=== PATIENT | female | born 1985 | race African-American/Black ===

== ENCOUNTER 2019-11-25 04:38 | Emergency (ER) | payer MEDICAID ==
[~2019-11-25] VITALS: Ht 162.6 cm; Wt 87.5 kg
[2019-11-25 05:00] VITALS: BP 107/72
[2019-11-25] MEDS ORDERED: PSEUDOEPHEDRINE60 MG PO (05:25)
[2019-11-25] MEDS ORDERED: IBUPROFEN600 MG ORAL (05:25)
--- NOTE | 2019-11-25 05:25 | Emergency Room Report ---
History of Present Illness General Chief Complaint: Upper Respiratory Illness Source: Patient Present Illness HPI 34-year-old female with no past medical history. She presents with complaint of headache cough, diarrhea, feet swelling. She had a cough and congestion last week. The cough is better after taking promethazine. She is also placed on Keflex. She was doing well and took the bus from [place] to here. Here she said that she had a headache and still has some congestion. Cough is better but still there. Reason she came in today because she had profuse diarrhea. Very watery. No cramping or fever or chills. Noticed that her feet are slightly swollen. Denies any abdominal pain. Denies any shortness of breath. Denies any calf swelling. Allergies: Coded Allergies: SULFAMETHOXAZOLE (Verified Allergy, Unknown, 11/25/19) TRAMADOL (Verified Allergy, Unknown, 11/25/19) TRIMETHOPRIM (Verified Allergy, Unknown, 11/25/19) Patient History Past Medical History: see triage record, old chart reviewed Past Surgical History: none Pertinent Family History: none Social History: Denies: smoking Last Menstrual Period: Now: No Immunizations: other Reviewed Nursing Documentation: PMH: Agreed; PSxH: Agreed Nursing Documentation-PMH Past Medical History: No History, Except For Review of Systems Eye: Denies: eye pain, blurred vision ENT: Denies: ear pain, nose congestion, throat swelling Respiratory: Reports: cough; Denies: shortness of breath Cardiovascular: Denies: chest pain, palpitations Gastrointestinal: Reports: diarrhea; Denies: abdominal pain, nausea, vomiting Musculoskeletal: Denies: back pain, joint pain Skin: Denies: rash Neurological: Denies: headache, numbness Endocrine: Denies: increased thirst, increased urine Hematologic/Lymphatic: Denies: easy bruising All Other Systems: negative except mentioned in HPI Physical Exam Vital Signs Date Time Temp Pulse Resp B/P (MAP) Pulse Ox O2 Delivery O2 Flow Rate FiO2 11/25/19 04:55 98.2 100 14 107/72 (84) 98 Room Air Vitals normal Sp02 EP Interpretation: reviewed, normal General Appearance: well appearing, no apparent distress, alert Head: normocephalic, atraumatic Eyes: bilateral eye PERRL, bilateral eye EOMI ENT: hearing grossly normal, normal pharynx Neck: full range of motion, supple, no meningismus Respiratory: chest non-tender, lungs clear, normal breath sounds Cardiovascular #1: regular rate, rhythm, no murmur Gastrointestinal: normal bowel sounds, non tender, no mass, no organomegaly, no bruit, non-distended Musculoskeletal: back normal, normal range of motion, gait/station normal, swelling - Mild nonpitting edema to the feet and ankle Neurologic: alert Psychiatric: mood/affect normal Medical Decision Making Diagnostic Impression: Primary Impression: Upper respiratory symptom ER Course Patient with a viral illness. No need for antibiotics. No evidence of meningitis, sepsis, pneumonia to my view. Her edema is probably secondary to dependent edema being on the bus from [place] to here. Is bilateral. Lungs are clear. No calf tenderness. No evidence of CHF. No evidence of DVT. Last Vital Signs Date Time Temp Pulse Resp B/P (MAP) Pulse Ox O2 Delivery O2 Flow Rate FiO2 11/25/19 04:55 98.2 100 14 107/72 (84) 98 Room Air Status: improved Disposition: HOME, SELF-CARE Condition: Stable Scripts Pseudoephedrine Hcl* (SUDAFED*) 60 Mg Tablet 60 MG PO Q6H, #20 TAB Prov: Manny Augustin MD 11/25/19 Ibuprofen* (MOTRIN*) 600 Mg Tablet 600 MG ORAL THREE TIMES A DAY, #30 TAB 0 Refills Prov: Manny Augustin MD 11/25/19 Referrals: NOT CHOSEN IPA/,REFERRING (PCP) Patient Instructions: Upper Respiratory Infection, Adult Additional Instructions: Increase fluids. Do not stop the diarrhea. Follow-up with in 7 days but return if worse. Manny Augustin MD Nov 25, 2019 05:25
[2019-11-25 05:30] VITALS: BP 107/72
== END 2019-11-25 05:30 | disposition home or self-care (01) ==
LOC: EMR 05:15
DX: J06.9 Acute upper respiratory infection, unspecified (principal); Z88.2 Allergy status to sulfonamides; Z88.8 Allergy status to other drugs, medicaments and biological substances
CPT/HCPCS: 99282